=== PATIENT | female | born 1995 | race Caucasian/White ===

== ENCOUNTER → 2024-08-03 16:40 | Outpatient (REF) | payer OTHER, SELFPAY | LOC: RAD 16:40 | PROVIDERS: ATTENDING PHYSICIAN Psychiatry & Neurology Neuromuscular Medicine; FAMILY PHYSICIAN Family Medicine | DX: J34.2 Deviated nasal septum (principal) | CPT/HCPCS: 70486 ==

== ENCOUNTER → 2024-08-07 16:36 | Outpatient (REF) | payer OTHER, SELFPAY | LOC: MRI 3T 16:36 | PROVIDERS: ATTENDING PHYSICIAN Psychiatry & Neurology Neuromuscular Medicine; FAMILY PHYSICIAN Family Medicine | DX: G43.709 Chronic migraine without aura, not intractable, without status migrainosus (principal); G44.52 New daily persistent headache (NDPH); I67.6 Nonpyogenic thrombosis of intracranial venous system | CPT/HCPCS: 70546; 70553; A9585 ==